=== PATIENT | female | born 1980 | race Caucasian/White ===

== ENCOUNTER 2016-08-23 05:29 | Inpatient (IN) | payer OTHER ==
--- NOTE | ~2016-08-23 | DS ---
Unit #: [id number] #: [id number] Patient: SUHA CARLOS [id number] [address] [address] [id number] I MR#: [id number] NAME: SUHA CARLOS. ROOM: 567 Age: 36 Sex: F Admission Date: 08/23/2016 : 1980 Discharge Date: 08/26/2016 Attending Physician: Francisco Javier Forde M.D. Primary Care Physician: No Primary Care Physician DISCHARGE SUMMARY DISCHARGE DIAGNOSES 1. Symptomatic hypokalemia. 2. Alcohol abuse. 3. Alcohol withdrawal. 4. Seizure disorder. 5. Hypertension. 6. Hyponatremia. HOSPITAL COURSE Patient is a 36-year-old female who presented to [facility] secondary to twitching. The patient was initially concerned that it was part of her seizure disorder; however, in the emergency department, she was noted to have a potassium of 1.8 and a sodium of 128. She was started on potassium replacement in the emergency department and admitted. The patient was started on alcohol withdrawal protocol given that she drinks a fifth of liquor daily. She was managed with Librium 50 mg every 8 hours and this mitigated her symptoms. Once her potassium was replaced, patient's symptoms resolved. A conversation was had with her regarding inpatient treatment for alcohol abuse; however, the patient refused. Therefore, given resolution of her symptoms and her refusal of inpatient therapy, the patient is being discharged home on a Librium taper. DISCHARGE MEDICATIONS 1. Neurontin 100 mg p.o. at bedtime. 2. Keppra 500 mg p.o. b.i.d. 3. Effexor 75 mg p.o. daily for depression. 4. Lopid 600 mg p.o. b.i.d. 5. Librium taper. 6. Lasix 40 mg p.o. b.i.d. 7. Hydralazine 50 mg p.o. t.i.d. 8. Multivitamin daily. 9. Calcium carbonate 500 mg p.o. t.i.d. 10. Klor-Con 20 mEq p.o. b.i.d. 11. Folic acid 1 mg daily. 12. Thiamine 100 mg p.o. daily. 13. Vitamin D 2000 units daily. 14. Zofran 4 mg p.o. q.4 hours p.r.n. FOLLOWUP Patient has been asked to follow up with Dr. Duke Whitaker at the earliest available appointment. Unit #: [id number] #: [id number] Patient: SUHA CARLOS Dictated by... Fred Smith/selin TD: 08/26/2016 09:12 JOB #: [id number] DISCHARGE SUMMARY Page 1 of 1 X Francisco Javier Forde MD X DISCHARGE SUMMARY
--- NOTE | ~2016-08-23 | EKG ---
PATIENT: SUHA CARLOS UNIT #: [id number] Ventricular Rate: 100 BPM Atrial Rate: 100 BPM P-R Interval: 106 ms QRS Duration: 92 ms Q-T Interval: 440 ms QTC Calculation(Bezet): 567 ms P Ararat: 41 degrees Calculated R Ararat: 48 degrees Calculated T Ararat: 52 degrees Diagnosis Line: Sinus rhythm with short AL Diagnosis Line: Prolonged QT Diagnosis Line: Pulmonary disease pattern Diagnosis Line: Abnormal ECG Diagnosis Line: When compared with ECG of 07-MAY-2016 06:47, Diagnosis Line: Vent. rate has increased BY 37 BPM Diagnosis Line: QT has lengthened Diagnosis Line: Confirmed by JOSE DAVID RM MD ([id number]) on 08/24/2016 Diagnosis Line: 11:11:36 PM INTERPRETING MD: SUJEY ADAMS
--- NOTE | ~2016-08-23 | HP ---
Unit #: [id number] #: [id number] Patient: SUHA CARLOS [id number] [address] [address] [id number] I MR#: [id number] NAME: SUHA CARLOS. ROOM: 57401 Age: 36 Sex: F Admission Date: 08/23/2016 : 1980 Attending Physician: Francisco Javier Forde M.D. Primary Care Physician: No Primary Care Physician HISTORY AND PHYSICAL CHIEF COMPLAINT Profound and symptomatic hypokalemia, alcohol abuse. HISTORY This 36-year-old female with alcohol abuse, history of pancreatitis, seizures, hypertension, is admitted for symptomatic hypokalemia. The patient states that she came to the ER because she developed twitching this past week, and was concerned that she was going to have a seizure. She drinks a fifth of liquor on a daily basis. Presents to this emergency department with a potassium of 1.8, sodium 128. In the ER, she currently is receiving a Rally bag, received 40 mEq of potassium and two runs of potassium were prescribed. I also gave the patient 1 mg of IV Ativan. Her current alcohol level is 221 but she is clinically sober. PAST MEDICAL HISTORY 1. Admission 04/2016 for respiratory failure, sepsis, aspiration pneumonia, acute kidney injury, and profound hyponatremia and hypokalemia. 2. Anxiety and depression. 3. GERD. 4. Seizures. 5. Hypertension. 6. Recurrent pancreatitis and history of pseudocyst. 7. BTL. 8. Hemorrhoid surgery. ALLERGIES No known drug allergies. HOME MEDICATIONS 1. Neurontin 100 mg q. h.s. 2. Keppra 500 mg b.i.d. 3. Effexor 75 mg daily. 4. Lopid 600 mg b.i.d. 5. Bumex 2 mg daily. 6. Hydralazine 50 mg t.i.d. 7. Vitamins. FAMILY HISTORY Hypertension and diabetes mellitus. SOCIAL HISTORY The patient lives with her father. She smokes one pack per day of Unit #: [id number] #: [id number] Patient: SUHA CARLOS tobacco, she drinks a fifth of liquor on a daily basis. Does not abuse drugs. Denies any possibility of . REVIEW OF SYSTEMS Notable for twitching and jitteriness, anxiety, depression, GERD, seizures, hypertension, alcohol abuse, pseudocyst and recurrent pancreatitis, above mentioned surgeries, tobacco abuse. All other systems were reviewed and are otherwise negative. PHYSICAL EXAMINATION GENERAL APPEARANCE: Pleasant, moderately obese 36-year-old female, currently in no acute distress. VITAL SIGNS: Temperature 99.1, pulse 104, respirations 19, blood pressure 109/60. O2 saturation is 98% on room air. HEENT: Eyes PERRLA. Extraocular muscles are intact. Pharynx is benign. NECK: Supple without adenopathy or thyromegaly. The patient does have telangiectasias over her cheeks bilaterally. CHEST: Clear. CARDIAC: Normal S1 and S2 without definite murmur. ABDOMEN: Bowel sounds are present. Mild hepatomegaly on exam. Nontender, no or masses. EXTREMITIES: Without clubbing, cyanosis or edema. Pedal pulses are present. NEUROLOGIC EXAM: The patient is awake, alert, oriented. Cranial nerves are intact. She has equal strength throughout. DIAGNOSTIC STUDIES LABORATORY: Hematocrit is 38.6, normal white count and platelet count. SMA-7 - glucose 235, sodium 128, potassium 1.8, chloride is 79, calcium is 7.7. Magnesium currently is pending. Alcohol level 221. ASSESSMENT 1. Profound, symptomatic hypokalemia secondary to alcohol abuse and Bumex. 2. Seizure disorder. 3. Alcohol abuse. 4. Hypertension. 5. Hyponatremia secondary to alcohol. PLANS 1. Replace potassium, check magnesium. 2. Benzos and vitamins. 3. SCDs. 4. Hold Bumex. 5. IV fluids with normal saline. 6. Repeat labs at 1 p.m. this afternoon and will also ask for LFTs. 7. I did offer the patient help in terms of her alcohol abuse. Further workup pending on above. Dictated by Suha Calderon M.D. Unit #: [id number] #: [id number] Patient: SUHA CARLOS Selvin AML/df TD: 08/23/2016 06:01 JOB #: [id number] HISTORY AND PHYSICAL Page 1 of 1 X Suha Calderon MD X HISTORY AND PHYSICAL
[2016-08-23 03:35] LABS: BASOPHIL# 0.1 X10e3 (0-0.3); BASOPHIL% 0.8 % (0-2.5); HEMATOCRIT 38.6 % (35.0-45.0); HEMOGLOBIN 12.2 gm/dL (12.0-16.0); LYMPHOCYTE# 1.2 X10e3 (1.0-3.5); LYMPHOCYTE% 14.6 % (17.0-45.0); MEAN CELL VOLUME 85.4 FL (83-96); MEAN CORPUSCULAR HGB CONC 31.6 g/dL (30-36); MEAN PLATELET VOLUME 8.1 FL (6.5-11.5); MONOCYTE# 0.4 X10e3 (0-1.0); MONOCYTE% 4.5 % (3.0-12.0); NEUTROPHIL# 6.8 X10e3 (1.5-7.1); NEUTROPHIL% 80.1 % (40-75); PLATELET COUNT 180 X10e3 (140-420); RED BLOOD COUNT 4.52 X10e (3.90-5.30); RED CELL DISTRIBUTION WIDTH 24.5 % (11.0-15.5); WHITE BLOOD COUNT 8.4 X10e3 (4.0-10.5)
[2016-08-23 03:37] LABS: DIFF IND YES
[2016-08-23 04:05] LABS: BUN/CREATININE RATIO 8.57; CALCIUM SERUM 7.7 mg/dL (8.4-10.2); CREATININE SERUM 0.7 mg/dL (0.6-1.4); GLOM FILT RATE Estimated 110.7 mL/min (>60)
[2016-08-23 04:06] LABS: POTASSIUM 1.8 mmol/L (3.5-5.1)
[2016-08-23 04:34] LABS: NUCLEATED RED BLOOD CELL 1 /100 (0); PLATELET ESTIMATE NORMAL (NORMAL)
[2016-08-23 04:37] LABS: POLYCHROMASIA SL; STOMATOCYTE PRESENT
[~2016-08-23 05:29] MED LIST: AUGMENTIN875 MG PO; CALCIUM 5001 TAB PO; CALCIUM ANTACI500 MG PO; DOXEPIN HCL25 MG PO; EFFEXOR75 M1 PO; FOLIC ACID PO; GABAPENTIN300 M2 PO; GABAPENTIN300 MG PO; HYDRALAZINE HCL50 MG PO; HYDROCHLOROTHIA25 MG PO; KEPPRA500 M2 PO; KLOR-CON PO; LAB DRAW; LASIX PO; LISINOPRIL20 MG PO; LOPID600 MG PO; NEURONTIN100 MG PO; NEUTRA-PHOS1.25 GM PO; PHENERGAN25 M1 PO; PROZAC40 MG PO; THERAPEUTIC VIT1 TA3 PO; THIAMINE HCL100 M1 PO; VITAMIN D 22000 UNIT PO; XANAX1 MG PO
[2016-08-23 07:57] LABS: URINE SOURCE CLEAN CATCH
[2016-08-23 08:13] LABS: URINE APPEARANCE CLEAR; URINE BLOOD 2+ (NEG); URINE COLOR DK YELLOW; URINE GLUCOSE NEG (NEG); URINE KETONE 1+ (NEG); URINE LEUKOCYTE ESTERASE NEG (NEG); URINE NITRATE NEG (NEG); URINE PH 6.5 (5-8); URINE PROTEIN 2+ (NEG); URINE SPECIFIC GRAVITY 1.016 (1.003-1.035)
[2016-08-23 08:18] LABS: CULTURE INDICATED? YES; URINE BACTERIA AUWI 1+ (NEGATIVE); URINE SQUAMOUS EPITHELIAL CELL MOD /[HPF]
[2016-08-23 08:25] LABS: AMPHETAMINE NEG (NEG); BARBITURATES NEG (NEG); BENZODIAZEPINES NEG (NEG); COCAINE NEG (NEG); MARIJUANA NEG (NEG); OPIATES NEG (NEG); TRICYCLIC ANTIDEPRESSANTS NEG (NEG); U METHADONE NEG (NEG)
[2016-08-23 08:33] LABS: URINE BILIRUBIN NEG (NEG)
[2016-08-23 15:56] LABS: ALBUMIN SERUM 3.1 g/dL (3.5-5.0); BILIRUBIN,TOTAL 3.3 mg/dL (0.2-2.0); BUN/CREATININE RATIO 8.88; CALCIUM SERUM 6.9 mg/dL (8.4-10.2); CREATININE SERUM 0.9 mg/dL (0.6-1.4); GLOM FILT RATE Estimated 81.7 mL/min (>60); MAGNESIUM 2.3 mg/dL (1.6-3.0); POTASSIUM 2.4 mmol/L (3.5-5.1); PROTEIN TOTAL SERUM 6.4 g/dL (6.0-8.3)
[2016-08-24 06:52] LABS: BASOPHIL% 0.6 % (0-2.5); EOSINOPHIL% 0.7 % (0.0-7.0); HEMATOCRIT 32.8 % (35.0-45.0); HEMOGLOBIN 10.3 gm/dL (12.0-16.0); LYMPHOCYTE# 1.2 X10e3 (1.0-3.5); MEAN CORPUSCULAR HEMOGLOBIN 27.2 PG (28-34); MEAN CORPUSCULAR HGB CONC 31.3 g/dL (30-36); MEAN PLATELET VOLUME 8.4 FL (6.5-11.5); MONOCYTE# 0.3 X10e3 (0-1.0); MONOCYTE% 5.3 % (3.0-12.0); NEUTROPHIL# 4.5 X10e3 (1.5-7.1); NEUTROPHIL% 74.4 % (40-75); PLATELET COUNT 126 X10e3 (140-420); RED BLOOD COUNT 3.78 X10e (3.90-5.30); RED CELL DISTRIBUTION WIDTH 24.9 % (11.0-15.5); WHITE BLOOD COUNT 6.1 X10e3 (4.0-10.5)
[2016-08-24 06:53] LABS: DIFF IND NO
[2016-08-24 07:32] LABS: AMYLASE 19 U/L (0-46); BLOOD UREA NITROGEN <5 mg/dL (9-23); BUN/CREATININE RATIO 7.14; CALCIUM SERUM 7.4 mg/dL (8.4-10.2); CARBON DIOXIDE 23 mmol/L (22-31); CHLORIDE 94 mmol/L (100-111); CREATININE SERUM 0.7 mg/dL (0.6-1.4); GLOM FILT RATE Estimated 110.7 mL/min (>60); GLUCOSE FASTING 154 mg/dL (70-110); LIPASE 35 U/L (22-51); MAGNESIUM 2.4 mg/dL (1.6-3.0); POTASSIUM 3.8 mmol/L (3.5-5.1); SODIUM 131 mmol/L (135-145)
[2016-08-25 07:51] LABS: HEMATOCRIT 32.3 % (35.0-45.0); HEMOGLOBIN 10.2 gm/dL (12.0-16.0); MEAN CELL VOLUME 88.4 FL (83-96); MEAN CORPUSCULAR HEMOGLOBIN 27.8 PG (28-34); MEAN CORPUSCULAR HGB CONC 31.5 g/dL (30-36); MEAN PLATELET VOLUME 8.6 FL (6.5-11.5); RED BLOOD COUNT 3.66 X10e (3.90-5.30); RED CELL DISTRIBUTION WIDTH 25.5 % (11.0-15.5); WHITE BLOOD COUNT 5.9 X10e3 (4.0-10.5)
[2016-08-25 08:13] LABS: ALBUMIN SERUM 2.6 g/dL (3.5-5.0); ALKALINE PHOSPHATASE 155 U/L (32-92); ALT (SGPT) 77 U/L (10-40); AST (SGOT) 178 U/L (10-42); CARBON DIOXIDE 22 mmol/L (22-31); CHLORIDE 101 mmol/L (100-111); CREATININE SERUM 0.6 mg/dL (0.6-1.4); GLOM FILT RATE Estimated 116.4 mL/min (>60); GLUCOSE FASTING 112 mg/dL (70-110); MAGNESIUM 2.4 mg/dL (1.6-3.0); POTASSIUM 3.5 mmol/L (3.5-5.1); PROTEIN TOTAL SERUM 5.7 g/dL (6.0-8.3); SODIUM 133 mmol/L (135-145)
[2016-08-25 08:14] LABS: BLOOD UREA NITROGEN <5 mg/dL (9-23); BUN/CREATININE RATIO 8.33
[2016-08-26 07:41] LABS: HEMATOCRIT 32.7 % (35.0-45.0); HEMOGLOBIN 10.1 gm/dL (12.0-16.0); MEAN CORPUSCULAR HEMOGLOBIN 27.8 PG (28-34); MEAN CORPUSCULAR HGB CONC 30.9 g/dL (30-36); MEAN PLATELET VOLUME 8.2 FL (6.5-11.5); RED BLOOD COUNT 3.63 X10e (3.90-5.30); RED CELL DISTRIBUTION WIDTH 25.9 % (11.0-15.5); WHITE BLOOD COUNT 7.8 X10e3 (4.0-10.5)
[2016-08-26 08:13] LABS: BLOOD UREA NITROGEN <5 mg/dL (9-23); BUN/CREATININE RATIO 8.33; CALCIUM SERUM 8.4 mg/dL (8.4-10.2); CARBON DIOXIDE 22 mmol/L (22-31); CHLORIDE 100 mmol/L (100-111); CREATININE SERUM 0.6 mg/dL (0.6-1.4); GLOM FILT RATE Estimated 116.4 mL/min (>60); GLUCOSE FASTING 127 mg/dL (70-110); POTASSIUM 3.4 mmol/L (3.5-5.1); SODIUM 132 mmol/L (135-145)
[2016-08-26] MEDS ORDERED: LIBRIUM PO (09:30)
[2016-08-26] MEDS ORDERED: PROTONIX PO (09:31)
[2016-08-26] MEDS ORDERED: ZOFRAN PO (09:39)
== END 2016-08-26 13:27 | disposition home or self-care (01) | DRG 896 ==
LOC: CED 05:29 → CEDOF 05:30 → C5C 12:14
PROVIDERS: Internal Medicine; Physician Assistant Medical; Student in an Organized Health Care Education/Training Program
DX: F10.229 Alcohol dependence with intoxication, unspecified (principal); E43 Unspecified severe protein-calorie malnutrition; F10.239 Alcohol dependence with withdrawal, unspecified; E87.1 Hypo-osmolality and hyponatremia; E87.6 Hypokalemia; G40.909 Epilepsy, unspecified, not intractable, without status epilepticus; F41.9 Anxiety disorder, unspecified; F32.9 Major depressive disorder, single episode, unspecified; K21.9 Gastro-esophageal reflux disease without esophagitis; I10 Essential (primary) hypertension; E83.51 Hypocalcemia; Y90.7 Blood alcohol level of 200-239 mg/100 ml; Z68.35 Body mass index [BMI] 35.0-35.9, adult
CPT/HCPCS: 80048; 80053; 80307; 81003; 82150; 83690; 83735; 84132; 84703; 85025; 85027; 87086; 93005; 96365; 96375; 99285; C9113; G0480; J2060; J2405; J3411; J3475

== ENCOUNTER 2016-09-03 21:12 | Inpatient (IN) | payer OTHER ==
--- NOTE | ~2016-09-03 | CR72 ---
[facility] A Service of [facility] & [facility] RADIOLOGY TEXT RESULTS PATIENT: SUHA CARLOS LOCATION: [facility] 568-01 : [birth year] UNIT #: [id number] AGE: [address]: Francisco Javier Forde MD SEX: F ORDER DR: [id number] [facility] [address] [place], [place] [address] [id number] I MR#: [id number] Acc #: [id number] NAME: SUHA CARLOS. : 1980 SEX: F STUDY DATE/TIME: 09/03/2016 21:16 UNIT: [facility] ROOM: [facility] STUDY DESCRIPTION: CR Chest Single View Portable Attending Physician: Francisco Javier Forde M.D. Ordering Physician: Antonio Maria M.D. Primary Care Physician: No Primary Care Physician MEDICAL IMAGING REPORT This report is preliminary unless electronic signature is present EXAM AP portable chest 09/03/2016. HISTORY A 36-year-old female in the ED complaining of 1-day history of shortness of air and difficulty breathing. TECHNIQUE AP portable chest x-ray. FINDINGS Heart size and pulmonary vascularity are normal. The lungs appear clear. No visible pulmonary infiltrate or pleural effusion. No change since 05/12/2016. IMPRESSION No active disease. No change since 05/12/2016. Dictated by... Wilman Sesay M.D. THIS IS AN ELECTRONICALLY VERIFIED REPORT Wilman Sesay M.D. at 09/06/2016 5:59 AM BONI/hetal TD: 09/04/2016 18:07 JOB #: [id number] MEDICAL IMAGING REPORT Page 1 of 1 COPY
--- NOTE | ~2016-09-03 | HP ---
Unit #: [id number] #: [id number] Patient: SUHA CARLOS [id number] [facility] [address] [place], [place] [address] [id number] I MR#: [id number] NAME: SUHA CARLOS. ROOM: 568 Age: 36 Sex: F Admission Date: 09/03/2016 : 1980 Attending Physician: Francisco Javier Forde M.D. Primary Care Physician: Primary Care Physician No HISTORY AND PHYSICAL CHIEF COMPLAINT Weakness, diarrhea, cramping. HISTORY OF PRESENT ILLNESS This is a 36-year-old female with history of anxiety, depression, GERD, seizures, hypertension, history of alcohol abuse, recurrent pancreatitis, pseudocyst, hypertriglyceridemia. She was recently admitted here in [facility] from 08/23 to 08/25/2016. She was found to be hypokalemic and alcohol abuse. She was eventually discharged home. She is telling me that she has been taking medication and she continued to drink alcohol. She comes in here with chief complaint of diarrhea, generalized weakness, cramps. She cannot even walk to the bathroom. She came her and on workup she was found to have potassium 2.2, sodium 138, abnormal LFTs, alcohol level 58, urinalysis positive for UTI and eventually has been admitted. She denies chest pain. She denies nausea, vomiting or abdominal pain. PAST MEDICAL HISTORY 1. History of admission in April 2016 for respiratory failure, sepsis, aspiration pneumonia, acute kidney injury, profound hyponatremia and hypokalemia. 2. History of hypokalemia. 3. Anxiety, depression. 4. GERD. 5. Seizures. 6. Hypertension. 7. History of hypertriglyceridemia and dyslipidemia. 8. History of recurrent pancreatitis and history of pseudocyst. PAST SURGICAL HISTORY 1. History of bilateral tubal ligation. 2. Hemorrhoid surgery. HOME MEDICATIONS From the last discharge on 08/26/2016 as follows: 1. Neurontin 100 mg h.s. 2. Keppra 500 b.i.d. 3. Effexor 75 mg daily. 4. Lopid 600 mg b.i.d. 5. Lasix 40 mg p.o. b.i.d. 6. Hydralazine 50 mg b.i.d. 7. Multivitamin one tablet daily. 8. Calcium carbonate 500 mg t.i.d. 9. Potassium chloride 20 mEq b.i.d. Unit #: [id number] #: [id number] Patient: SUHA CARLOS 10. Folic acid 1 mg daily. 11. Thiamine 100 mg daily. 12. Vitamin D 2000 units daily. 13. Zofran 4 mg q.4 h. p.r.n. ALLERGIES No known drug allergies. SOCIAL HISTORY She lives with her father. She smokes one pack daily. She drinks a fifth of liquor on a daily basis. She says she drinks only time (1) she left from the hospital. She does not abuse drugs. Denies any other illicit drug use. FAMILY HISTORY Diabetes and hypertension in the family. REVIEW OF SYSTEMS All review of systems negative except as per history of present illness. PHYSICAL EXAMINATION VITAL SIGNS: Temperature 98.2, heart rate 100, respiratory rate 18, blood pressure 112/69, oxygen saturation 100% on room air. GENERAL: Middle-aged female lying in the bed, comfortable, currently not in any distress. She is alert, awake, oriented x3. HEENT: Pupils are equal and reactive to light and accommodation. Extraocular muscles are intact. Pharynx benign. NECK: Supple. No JVD, no thyromegaly. LUNGS: Clear to auscultation. HEART: S1, S2. Regular rate and rhythm. ABDOMEN: Soft, mildly distended, nontender. Bowel sounds positive. EXTREMITIES: Normal. No cyanosis, clubbing, or edema. NEUROLOGIC: No focal neurologic deficits. Cranial nerves II-XII intact. DIAGNOSTIC STUDIES LABORATORY: UA has cloudy appearance, positive (2) , positive nitrate. Lipase 12. White count 9, hemoglobin 10, hematocrit 35, platelets 269. Sodium 132, potassium 2.2, chloride 94, BUN 5, creatinine 0.6, AST 88, ALT 65, alkaline phosphatase 279, direct bilirubin 6.1, albumin 2.7. Alcohol level is 58. IMAGING: Chest x-ray negative. ASSESSMENT AND PLAN 1. Urinary tract infection. Start patient on IV Rocephin. 2. Symptomatic hypokalemia. Replace potassium. Recheck magnesium in the morning. Monitor electrolytes. 3. Abnormal liver function tests, most likely secondary to alcoholic liver disease with abdominal distention. I will get ultrasound of liver, abdomen. 4. History of seizures. 5. Hypertension. 6. History of dyslipidemia. 7. Anxiety, depression. 8. Gastroesophageal reflux disease. 9. Tobacco and alcohol abuse. Watch for alcohol withdrawal symptoms. Unit #: [id number] #: [id number] Patient: SUHA CARLOS Dictated by Fred Lau/courtney TD: 09/04/2016 12:06 JOB #: [id number] HISTORY AND PHYSICAL Page 1 of 1 X X HISTORY AND PHYSICAL
--- NOTE | ~2016-09-03 | DS ---
Unit #: [id number] #: [id number] Patient: SUHA CARLOS [id number] [address] [address] [id number] I MR#: [id number] NAME: SUHA CARLOS. ROOM: 568 Age: 36 Sex: F Admission Date: 09/03/2016 : 1980 Discharge Date: 09/08/2016 Attending Physician: Kamryn Lehman M.D. Primary Care Physician: No Primary Care Physician DISCHARGE SUMMARY DISCHARGE DIAGNOSES 1. Alcohol dependence. 2. Urinary tract infection. 3. Anemia. 4. Hypokalemia. 5. History of anxiety. 6. Depression. 7. History of seizures. 8. Hypertension. 9. Hyperlipidemia. 10. Gastroesophageal reflux disease. 11. History of recurrent pancreatitis. 12. History of pseudocyst. 13. Moderate protein malnutrition. 14. Hypokalemia. 15. Alcoholic hepatitis. CONSULTANTS None. PROCEDURES None. DIAGNOSTIC DATA LABORATORY: Hemoglobin A1c 5.4. B12 greater than 1500, folate 11.3, TSH 9.43, sodium 132, potassium 3.5, creatinine 0.8, AST 88, ALT 4,000, alkaline phosphatase 421, total protein 5.9, albumin 2.1, white blood cell count 7.8, hemoglobin 10,3, platelets 170. Lipase 12. IMAGING: CAT scan of the head no acute changes. Ultrasound of the abdomen, hepatomegaly and diffuse hepatic steatosis. Chronic pancreatic pseudocyst present. ALLERGIES None. DISCHARGE MEDICATIONS 1. Neurontin 100 mg p.o. daily. 2. Keppra 500 mg p.o. b.i.d. 3. Effexor 75 mg daily. 4. Zofran 4 mg q.6 h. p.r.n. nausea. 5. Lopid 600 mg p.o. b.i.d. 6. Lasix 40 mg p.o. b.i.d. Unit #: [id number] #: [id number] Patient: SUHA CARLOS 7. Multivitamin 1 tablet p.o. daily. 8. Folic acid 1 mg daily. 9. Thiamine 100 mg daily. 10. Vitamin D 2000 p.o. daily. 11. Nitrofurantoin 100 mg p.o. b.i.d. HOSPITAL COURSE The patient is a 36-year-old admitted because of generalized weakness. Alcohol dependence: Mild withdrawal symptoms. The patient received Librium. Currently she is alert and oriented times three. No hallucinations. I am going to discontinue the Librium. Urinary tract infection: Cultures not sent. The patient received Rocephin. I will be discharging her on two days of nitrofurantoin. Generalized weakness: Most likely secondary to alcohol dependence. CAT scan of the head is negative. Vitamin B12 negative. Continue thiamine and folic acid. She does have some neuropathy from most likely alcohol dependence. Continue with Neurontin low dose at bedtime. Hypokalemia: Replaced with potassium. Moderate protein malnutrition: Continue with high protein diet at home. Anemia: Chronic. No active bleeding. Iron deficiency. Abnormal TSH: I am going to check free T4 and give Synthroid if needed. DISPOSITION Discharge home. FOLLOWUP 1. Follow up with family physician in one week time. 2. The patient can also follow up with family physician for abnormal thyroid level. 3. Follow up with Dr. Adam Green in four weeks time for neuropathy. 4. Follow up with Dr. Hernandez for four weeks for alcohol dependence. Dictated by... Fred Rosales TD: 09/08/2016 14:26 JOB #: [id number] DISCHARGE SUMMARY Page 1 of 1 X Kamryn Lehman MD DISCHARGE SUMMARY
--- NOTE | ~2016-09-03 | US5 ---
[facility] A Service of [facility] & [facility] RADIOLOGY TEXT RESULTS PATIENT: SUHA CARLOS LOCATION: [facility] 568-01 : [birth year] UNIT #: [id number] AGE: [address]: Francisco Javier Forde MD SEX: F ORDER DR: [id number] [facility] [address] [place], [place] [address] [id number] I MR#: [id number] Acc #: [id number] NAME: SUHA CARLOS. : 1980 SEX: F STUDY DATE/TIME: 09/04/2016 8:54 UNIT: [facility] ROOM: [facility] STUDY DESCRIPTION: US Abdominal Complete Attending Physician: Francisco Javier Forde M.D. Ordering Physician: Gissell Manuel M.D. Primary Care Physician: No Primary Care Physician MEDICAL IMAGING REPORT This report is preliminary unless electronic signature is present EXAM Abdominal ultrasound 09/04/2016 HISTORY 36-year-old female with abdominal distension and elevated liver function test for [address] abdomen and pelvis 05/07/2016 FINDINGS Examination is technically limited secondary to bowel gas. The liver demonstrates diffusely heterogeneous echogenicity and is mildly enlarged, consistent with a known hepatic steatosis. No intrahepatic ductal dilatation. No focal hepatic masses. The pancreas is difficult to clearly visualize secondary to overlying bowel gas. Visualized portions of the abdominal aorta and IVC are unremarkable. The spleen is unremarkable. Both kidneys are within normal limits. Gallbladder is free of stones or wall thickening. No pericholecystic fluid. Common bile duct is within normal limits measuring 5 mm diameter. There is a partially imaged anechoic area anterior to the left kidney, which likely represents the patient's known peripancreatic fluid collection. This may represent a chronic pancreatic pseudocyst. If indicated, this can be further evaluated with a cross-sectional imaging. IMPRESSION 1. Hepatomegaly and diffuse hepatic steatosis. 2. Technically limited examination secondary to bowel gas. The pancreas and portions of the abdominal aorta are obscured by overlying bowel gas. 3. Partially imaged anechoic area anterior to the left kidney, likely representing the patient's known peripancreatic fluid collections seen on previous CT from 05/07/2016. This may represent a chronic STS. [facility] A Service of [facility] RADIOLOGY TEXT RESULTS PATIENT: SUHA CARLOS LOCATION: [facility] 568-01 : [birth year] UNIT #: [id number] AGE: [address]: Francisco Javier Forde MD SEX: F ORDER DR: pancreatic pseudocyst. If indicated, this can be further evaluated with a non emergent to repeat CT of the abdomen pelvis. Dictated by... William Thomas M.D. THIS IS AN ELECTRONICALLY VERIFIED REPORT William Thomas M.D. at 09/05/2016 8:14 AM EVANS/sabrina TD: 09/05/2016 02:54 JOB #: [id number] MEDICAL IMAGING REPORT Page 1 of 1 COPY
--- NOTE | ~2016-09-03 | CT71 ---
[facility] A Service of [facility] RADIOLOGY TEXT RESULTS PATIENT: SUHA CARLOS LOCATION: [facility] 568-01 : [birth year] UNIT #: [id number] AGE: [address]: Kamryn Lehman MD SEX: F ORDER DR: [id number] [place] [address] [facility] [place], [place] [address] [id number] I MR#: [id number] Acc #: [id number] NAME: SUHA CARLOS. : 1980 SEX: F STUDY DATE/TIME: 09/07/2016 16:00 UNIT: [facility] ROOM: [facility] STUDY DESCRIPTION: CT Head Wo Contrast Attending Physician: Kamryn Lehman M.D. Ordering Physician: Kamryn Lehman M.D. MEDICAL IMAGING REPORT This report is preliminary unless electronic signature is present EXAM CT head 09/07/2016 HISTORY Weakness, numbness, leg weakness. Fell, hit chin, blurred vision. Eyes were crusting or swollen but not now, x4 days ago. Prior history of hypertension, seizures, daily ETOH, pancreatitis. TECHNIQUE CT head performed skull base through vertex without intravenous contrast. This CT exam was performed with one or more of the following radiation dose reduction techniques: automatic exposure control, adjustment of mA and/or kV according to patient size, and iterative reconstruction. COMPARISON STUDIES 08/20/2015. FINDINGS Brainstem unremarkable. Cerebellum and cerebral hemispheres show normal cordero matter-white matter differentiation. No hemorrhage. No evidence of acute cortical ischemia. The midline structures are nondisplaced. The basal ganglia show no acute abnormality. The ventricles, cisterns and sulci show mild generalized enlargement suggesting mild generalized atrophy. No intra- or extraaxial mass effect or abnormal intracranial fluid collection. The intraorbital soft tissues are unremarkable. The visualized paranasal sinuses and mastoid air cells are clear. No fracture. IMPRESSION 1. No acute-appearing abnormality in the brain. If the patient has ongoing neurologic symptoms, consider follow-up imaging, preferably with MRI if the patient is a candidate. [facility] A Service of [facility] RADIOLOGY TEXT RESULTS PATIENT: SUHA CARLOS LOCATION: [facility] 568-01 : [birth year] UNIT #: [id number] AGE: [address]: Kamryn Lehman MD SEX: F ORDER DR: 2. There is mild generalized atrophy. 3. No fracture. Dictated by... Onofre Humphries M.D. THIS IS AN ELECTRONICALLY VERIFIED REPORT Onofre Humphries M.D. at 09/08/2016 2:37 PM JOSHUA/renard TD: 09/07/2016 21:36 JOB #: [id number] MEDICAL IMAGING REPORT Page 1 of 1 COPY
[2016-09-03 20:33] LABS: BASOPHIL# 0.1 X10e3 (0-0.3); EOSINOPHIL# 0.1 X10e3 (0-0.7); EOSINOPHIL% 0.7 % (0.0-7.0); HEMATOCRIT 35.9 % (35.0-45.0); HEMOGLOBIN 10.8 gm/dL (12.0-16.0); LYMPHOCYTE# 3.9 X10e3 (1.0-3.5); LYMPHOCYTE% 40.1 % (17.0-45.0); MEAN CELL VOLUME 96.2 FL (83-96); MEAN CORPUSCULAR HGB CONC 30.2 g/dL (30-36); MEAN PLATELET VOLUME 9.6 FL (6.5-11.5); MONOCYTE# 0.3 X10e3 (0-1.0); MONOCYTE% 2.8 % (3.0-12.0); NEUTROPHIL# 5.4 X10e3 (1.5-7.1); NEUTROPHIL% 55.4 % (40-75); PLATELET COUNT 269 X10e3 (140-420); RED BLOOD COUNT 3.73 X10e (3.90-5.30); RED CELL DISTRIBUTION WIDTH 26.7 % (11.0-15.5); WHITE BLOOD COUNT 9.7 X10e3 (4.0-10.5)
[2016-09-03 20:35] LABS: DIFF IND YES
[2016-09-03 20:47] LABS: ALBUMIN SERUM 2.7 g/dL (3.5-5.0); ALCOHOL BLOOD 58 mg/dL (0); ALKALINE PHOSPHATASE 279 U/L (32-92); ALT (SGPT) 65 U/L (10-40); AST (SGOT) 88 U/L (10-42); BILIRUBIN, DIRECT 4.2 mg/dL (0.0-0.2); BILIRUBIN,INDIRECT 1.9 mg/dL (0.0-0.9); BILIRUBIN,TOTAL 6.1 mg/dL (0.2-2.0); CALCIUM SERUM 8.6 mg/dL (8.4-10.2); CARBON DIOXIDE 18 mmol/L (22-31); CHLORIDE 94 mmol/L (100-111); CREATININE SERUM 0.6 mg/dL (0.6-1.4); GLOM FILT RATE Estimated 116.4 mL/min (>60); GLUCOSE FASTING 128 mg/dL (70-110); PROTEIN TOTAL SERUM 6.2 g/dL (6.0-8.3); SODIUM 132 mmol/L (135-145)
[2016-09-03 20:50] LABS: BLOOD UREA NITROGEN <5 mg/dL (9-23); BUN/CREATININE RATIO 8.33; POTASSIUM 2.2 mmol/L (3.5-5.1)
[2016-09-03 21:04] LABS: PLATELET ESTIMATE NORMAL (NORMAL); STOMATOCYTE PRESENT
[2016-09-03 21:05] LABS: POIKILOCYTOSIS SL
[~2016-09-03 21:12] MED LIST changes: +LIBRIUM PO; +PROTONIX PO; +ZOFRAN PO
[2016-09-03 21:22] LABS: URINE SOURCE CLEAN CATCH
[2016-09-03 21:44] LABS: URINE APPEARANCE CLOUDY; URINE BLOOD NEG (NEG); URINE COLOR DK YELLOW; URINE GLUCOSE NEG (NEG); URINE KETONE TRACE (NEG); URINE LEUKOCYTE ESTERASE 1+ (NEG); URINE NITRATE POS (NEG); URINE PH 5.5 (5-8); URINE PROTEIN 1+ (NEG); URINE SPECIFIC GRAVITY 1.026 (1.003-1.035)
[2016-09-03 21:45] LABS: URBCS1 AUWI 0-2 /[HPF] (0-2); URINE BACTERIA AUWI NEG (NEGATIVE); URINE SQUAMOUS EPITHELIAL CELL MOD /[HPF]
[2016-09-03 21:53] LABS: URINE BILIRUBIN NEG (NEG)
[2016-09-03] MEDS ORDERED: KEPPRA500 M2 PO (22:22)
[2016-09-03] MEDS ORDERED: EFFEXOR75 MG PO (22:51)
[2016-09-03] MEDS ORDERED: LIBRIUM PO (22:52)
[2016-09-03] MEDS ORDERED: NEURONTIN100 MG PO (22:52)
[2016-09-03] MEDS ORDERED: LOPID600 MG PO (22:52)
[2016-09-03] MEDS ORDERED: HYDRALAZINE HCL50 MG PO (22:53)
[2016-09-03] MEDS ORDERED: LASIX PO (22:53)
[2016-09-03] MEDS ORDERED: CALCIUM CARBON500 M2 PO (22:54)
[2016-09-03] MEDS ORDERED: MULTI-VITAMIN1 EAC1 PO (22:54)
[2016-09-03] MEDS ORDERED: KCL PO (22:55)
[2016-09-03] MEDS ORDERED: FOLIC ACID1 MG PO (22:55)
[2016-09-03] MEDS ORDERED: THIAMINE HCL100 MG PO (22:55)
[2016-09-03] MEDS ORDERED: VITAMIN D-32000 UNI2 PO (22:56)
[2016-09-03] MEDS ORDERED: ZOFRAN 2 MG4 MG/2 ML PO (22:57)
[2016-09-04 06:22] LABS: ALBUMIN SERUM 2.5 g/dL (3.5-5.0); ALKALINE PHOSPHATASE 322 U/L (32-92); ALT (SGPT) 61 U/L (10-40); AST (SGOT) 103 U/L (10-42); BILIRUBIN,TOTAL 6.6 mg/dL (0.2-2.0); BLOOD UREA NITROGEN <5 mg/dL (9-23); BUN/CREATININE RATIO 7.14; CALCIUM SERUM 8.6 mg/dL (8.4-10.2); CARBON DIOXIDE 21 mmol/L (22-31); CHLORIDE 98 mmol/L (100-111); CREATININE SERUM 0.7 mg/dL (0.6-1.4); GLOM FILT RATE Estimated 110.7 mL/min (>60); GLUCOSE FASTING 77 mg/dL (70-110); MAGNESIUM 1.7 mg/dL (1.6-3.0); POTASSIUM 3.8 mmol/L (3.5-5.1); PROTEIN TOTAL SERUM 5.9 g/dL (6.0-8.3); SODIUM 135 mmol/L (135-145)
[2016-09-05 10:32] LABS: HEMATOCRIT 33.9 % (35.0-45.0); HEMOGLOBIN 10.8 gm/dL (12.0-16.0); MEAN CELL VOLUME 96.6 FL (83-96); MEAN CORPUSCULAR HEMOGLOBIN 30.9 PG (28-34); MEAN PLATELET VOLUME 9.4 FL (6.5-11.5); RED BLOOD COUNT 3.5 X10e (3.90-5.30); RED CELL DISTRIBUTION WIDTH 27.4 % (11.0-15.5); WHITE BLOOD COUNT 6.9 X10e3 (4.0-10.5)
[2016-09-05 11:01] LABS: BUN/CREATININE RATIO 5.55; CALCIUM SERUM 8.4 mg/dL (8.4-10.2); CREATININE SERUM 0.9 mg/dL (0.6-1.4); GLOM FILT RATE Estimated 81.7 mL/min (>60); POTASSIUM 3.7 mmol/L (3.5-5.1)
[2016-09-06 06:21] LABS: HEMATOCRIT 33.7 % (35.0-45.0); HEMOGLOBIN 10.3 gm/dL (12.0-16.0); MEAN CELL VOLUME 97.2 FL (83-96); MEAN CORPUSCULAR HEMOGLOBIN 29.6 PG (28-34); MEAN CORPUSCULAR HGB CONC 30.5 g/dL (30-36); MEAN PLATELET VOLUME 8.9 FL (6.5-11.5); RED BLOOD COUNT 3.47 X10e (3.90-5.30); WHITE BLOOD COUNT 7.1 X10e3 (4.0-10.5)
[2016-09-06 07:12] LABS: ALBUMIN SERUM 2.2 g/dL (3.5-5.0); BILIRUBIN,TOTAL 6.5 mg/dL (0.2-2.0); BUN/CREATININE RATIO 6.25; CALCIUM SERUM 8.2 mg/dL (8.4-10.2); CREATININE SERUM 0.8 mg/dL (0.6-1.4); GLOM FILT RATE Estimated 94.3 mL/min (>60); POTASSIUM 3.7 mmol/L (3.5-5.1); PROTEIN TOTAL SERUM 5.6 g/dL (6.0-8.3)
[2016-09-07 06:26] LABS: HEMATOCRIT 34.1 % (35.0-45.0); HEMOGLOBIN 10.3 gm/dL (12.0-16.0); MEAN CELL VOLUME 98.1 FL (83-96); MEAN CORPUSCULAR HEMOGLOBIN 29.7 PG (28-34); MEAN CORPUSCULAR HGB CONC 30.2 g/dL (30-36); MEAN PLATELET VOLUME 9.3 FL (6.5-11.5); RED BLOOD COUNT 3.47 X10e (3.90-5.30); WHITE BLOOD COUNT 7.8 X10e3 (4.0-10.5)
[2016-09-07 06:47] LABS: ALBUMIN SERUM 2.1 g/dL (3.5-5.0); BILIRUBIN,TOTAL 6.4 mg/dL (0.2-2.0); BUN/CREATININE RATIO 6.25; CALCIUM SERUM 8.3 mg/dL (8.4-10.2); CREATININE SERUM 0.8 mg/dL (0.6-1.4); GLOM FILT RATE Estimated 94.3 mL/min (>60); POTASSIUM 3.5 mmol/L (3.5-5.1); PROTEIN TOTAL SERUM 5.9 g/dL (6.0-8.3)
[2016-09-07 16:14] LABS: FOLATE (FOLIC ACID) 11.3 ng/mL (>5.8)
[2016-09-08] MEDS ORDERED: NEURONTIN100 MG PO (15:33)
[2016-09-08] MEDS ORDERED: NITROFURANTOIN100 M3 PO (16:06)
[2016-09-08 16:08] LABS: FREE T3 2.6 pg/mL (2.5-3.9)
[2016-09-08 16:09] LABS: FREE THYROXIN (T4) 0.62 ng/dL (0.58-1.64)
== END 2016-09-08 18:50 | disposition home or self-care (01) | DRG 690 ==
LOC: CED 21:12 → CEDOF 23:10 → C5C 09-04 03:48
PROVIDERS: Internal Medicine; Student in an Organized Health Care Education/Training Program
DX: N39.0 Urinary tract infection, site not specified (principal); E44.0 Moderate protein-calorie malnutrition; K70.10 Alcoholic hepatitis without ascites; E87.1 Hypo-osmolality and hyponatremia; E87.5 Hyperkalemia; F10.239 Alcohol dependence with withdrawal, unspecified; E87.6 Hypokalemia; I10 Essential (primary) hypertension; G40.909 Epilepsy, unspecified, not intractable, without status epilepticus; F41.9 Anxiety disorder, unspecified; F32.9 Major depressive disorder, single episode, unspecified; E78.5 Hyperlipidemia, unspecified; K21.9 Gastro-esophageal reflux disease without esophagitis; D50.9 Iron deficiency anemia, unspecified; Z72.0 Tobacco use; R73.9 Hyperglycemia, unspecified; G62.1 Alcoholic polyneuropathy
CPT/HCPCS: 36415; 51701; 70450; 71010; 76700; 80048; 80053; 80076; 81003; 82607; 82746; 83036; 83690; 83735; 84439; 84443; 84481; 84703; 85025; 85027; 96361; 96374; 97110; 97116; 97162; 97166; 97530; 97535; 99285; G0480; J0696; J1885; J2270; J2405; J3411; J7042

== ENCOUNTER → 2016-09-27 | Outpatient (CLI) | payer OTHER ==
[~2016-09-27] MED LIST changes: +CALCIUM CARBON500 M2 PO; +EFFEXOR75 MG PO; +FOLIC ACID1 MG PO; +KCL PO; +MULTI-VITAMIN1 EAC1 PO; +NITROFURANTOIN100 M3 PO; +THIAMINE HCL100 MG PO; +VITAMIN D-32000 UNI2 PO; +ZOFRAN 2 MG4 MG/2 ML PO
--- NOTE | ~2016-09-27 | MR18 ---
[facility] A Service of [facility] RADIOLOGY TEXT RESULTS PATIENT: SUHA CARLOS LOCATION: [facility] : 78 UNIT #: [id number] AGE: [address]: JAKOB DUMONT MD SEX: F ORDER DR: [id number] [facility] [address] [place], [place] [address] [id number] MR#: [id number] Acc #: [id number] NAME: SUHA CARLOS. : 1980 SEX: F STUDY DATE/TIME: 09/27/2016 14:10 UNIT: [facility] ROOM: STUDY DESCRIPTION: MR Brain Wo Contrast Attending Physician: Jakob Dumont M.D. Referring Physician: Jakob Dumont M.D. Ordering Physician: Jakob Dumont M.D. Primary Care Physician: Jakob Dumont M.D. MRI CENTER REPORT This report is preliminary unless electronic signature is present. EXAM MRI brain without. HISTORY Stroke syndrome, dizziness and blurred vision with low potassium August 2016. MRI to evaluate for possible stroke. Currently the symptoms have been ongoing for 3 weeks. History of hypertension and alcohol use. No history of cancer. COMMENTS MRI of the brain was performed without contrast using routine 1.5T imaging technique with motion limiting sequences due to patient motion during the study. COMPARISON There is a head CT for comparison from 09/07/2016. FINDINGS There is no evidence for a recent ischemic insult on the diffusion series. There is no Chiari-I malformation. Midline structures are grossly unremarkable. No extraaxial fluid collection. There is still some mild motion limitation of the exam. The major intracranial flow voids are maintained. The mastoid air cells are clear. The paranasal sinuses are clear. No intracranial mass effect. Minor periventricular white matter signal abnormalities within the range of normal for age group. There is no intracranial mass effect. No midline shift. Basilar cisterns patent. No hydrocephalus. IMPRESSION Essentially normal noncontrast brain MRI for age group allowing for some motion. [facility] A Service of [facility] RADIOLOGY TEXT RESULTS PATIENT: SUHA CARLOS LOCATION: [facility] : [birth year] UNIT #: [id number] AGE: [address]: JAKOB DUMONT MD SEX: F ORDER DR: Dictated by... Neida Pepper M.D. THIS IS AN ELECTRONICALLY VERIFIED REPORT Neida Pepper M.D. at 09/29/2016 7:41 AM ROSSI/sara TD: 09/28/2016 18:49 JOB #: [id number] MRI CENTER REPORT Page 1 of 1 COPY
== END | disposition home or self-care (01) ==
LOC: CMRI 13:36
DX: I63.9 Cerebral infarction, unspecified (principal)
CPT/HCPCS: 70551

== ENCOUNTER → 2016-10-28 | Outpatient (CLI) | payer OTHER ==
--- NOTE | ~2016-10-28 | CT5 ---
[facility] A Service of [facility] RADIOLOGY TEXT RESULTS PATIENT: SUHA CARLOS LOCATION: [facility] : 78 UNIT #: [id number] AGE: [address]: Deondre Suarez MD SEX: F ORDER DR: [id number] [facility] [address] [place], [place] [address] [id number] O MR#: [id number] Acc #: [id number] NAME: SUHA CARLOS. : 1980 SEX: F STUDY DATE/TIME: 10/28/2016 10:47 UNIT: [facility] ROOM: STUDY DESCRIPTION: CT Abdomen W Cont Attending Physician: Deondre Suarez M.D. Referring Physician: Deondre Suarez M.D. Ordering Physician: Deondre Suarez M.D. Primary Care Physician: Maryan Vo M.D. MEDICAL IMAGING REPORT This report is preliminary unless electronic signature is present EXAM CT abdomen with contrast INDICATIONS Diffuse epigastric abdominal pain off and on for the past 8 months. TECHNIQUE Contrast-enhanced CT of the abdomen with attention to the pancreas. This CT exam was performed with one or more of the following radiation dose reduction techniques: automatic exposure control, adjustment of mA and/or kV according to patient size, and iterative reconstruction. COMPARISON 05/07/2016. FINDINGS ABDOMEN WITH CONTRAST: Included lung bases are clear. Liver enlarged measuring 22.8 cm with severe steatosis. No focal liver lesion. Spleen measures 13.6 cm. There are scattered peripancreatic fluid collections in keeping with pseudocysts. 2 adjacent collections in the region of the pancreatic tail, measuring 2.5 and 2.9 cm. These are similar to slightly decreased from the previous study. Previously demonstrated collection along the superior margin of pancreatic tail significantly decreased in size, now 2.2 cm, previously 7.2 cm. There is a linear collection adjacent to the head of the pancreas measuring 3.8 x 1.1 cm which is new. There may be mild peripancreatic inflammatory change. The portal vein is patent. The splenic vein and [facility] A Service [facility] RADIOLOGY TEXT RESULTS PATIENT: SUHA CARLOS [facility] [id number] : 78 UNIT #: [id number] AGE: [address]: Deondre Suarez MD SEX: F ORDER DR: superior mesenteric vein are patent. Kidneys, adrenal glands, gallbladder show no acute abnormality. The bowel loops are non-dilated. Scattered small retroperitoneal lymph nodes similar to the prior. No aggressive appearing bone lesion. IMPRESSION 1. Peripancreatic pseudocysts. An index pseudocyst in the tail of pancreas significantly decreased in size. There are 2 other collections adjacent to the tail of the pancreas that are stable to minimally improved. There is a linear collection inferior to the pancreatic head which is new compared with the prior. 2. There may be minimal peripancreatic inflammatory change that could represent residual inflammatory stranding, but could also represent very mild acute pancreatitis. Correlate with patient's current symptoms. 3. Severe hepatic steatosis with hepatosplenomegaly. Dictated by... Jose Verdin M.D. THIS IS AN ELECTRONICALLY VERIFIED REPORT Jose Verdin M.D. at 10/28/2016 10:23 PM DEJAN/renard TD: 10/28/2016 17:49 JOB #: [id number] MEDICAL IMAGING REPORT Page 1 of 1 COPY
[2016-10-28 09:16] LABS: BASOPHIL# 0.1 X10e3 (0-0.3); BASOPHIL% 0.7 % (0-2.5); EOSINOPHIL# 0.3 X10e3 (0-0.7); EOSINOPHIL% 2.9 % (0.0-7.0); HEMOGLOBIN 12.1 gm/dL (12.0-16.0); LYMPHOCYTE# 1.8 X10e3 (1.0-3.5); LYMPHOCYTE% 16.1 % (17.0-45.0); MEAN CORPUSCULAR HEMOGLOBIN 31.5 PG (28-34); MEAN CORPUSCULAR HGB CONC 31.8 g/dL (30-36); MEAN PLATELET VOLUME 8.9 FL (6.5-11.5); MONOCYTE# 0.7 X10e3 (0-1.0); MONOCYTE% 6.3 % (3.0-12.0); NEUTROPHIL# 8.1 X10e3 (1.5-7.1); PLATELET COUNT 281 X10e3 (140-420); RED BLOOD COUNT 3.84 X10e (3.90-5.30); RED CELL DISTRIBUTION WIDTH 18.3 % (11.0-15.5); WHITE BLOOD COUNT 10.9 X10e3 (4.0-10.5)
[2016-10-28 09:18] LABS: DIFF IND NO
[2016-10-28 09:27] LABS: INR 1.2
[2016-10-28 10:28] LABS: ALBUMIN SERUM 2.5 g/dL (3.5-5.0); BILIRUBIN,TOTAL 2.3 mg/dL (0.2-2.0); BUN/CREATININE RATIO 7.14; CALCIUM SERUM 8.7 mg/dL (8.4-10.2); CREATININE SERUM 0.7 mg/dL (0.6-1.4); GLOM FILT RATE Estimated 110.7 mL/min (>60); POTASSIUM 4.1 mmol/L (3.5-5.1); PROTEIN TOTAL SERUM 6.9 g/dL (6.0-8.3)
[2016-11-01 22:57] LABS: ANA SCREEN Negative (Negative)
== END | disposition home or self-care (01) ==
LOC: CCAT 08:10
PROVIDERS: Internal Medicine Gastroenterology
DX: K85.90 Acute pancreatitis without necrosis or infection, unspecified (principal); K86.3 Pseudocyst of pancreas; K70.30 Alcoholic cirrhosis of liver without ascites; D50.9 Iron deficiency anemia, unspecified; I10 Essential (primary) hypertension; E78.5 Hyperlipidemia, unspecified; G40.909 Epilepsy, unspecified, not intractable, without status epilepticus; K76.0 Fatty (change of) liver, not elsewhere classified; R16.2 Hepatomegaly with splenomegaly, not elsewhere classified
CPT/HCPCS: 36415; 74160; 80053; 82105; 82140; 82390; 82525; 82728; 83540; 83550; 85025; 85610; 85652; 86038; 86039; 86705; 86707; 87340; 87350; 87522; Q9967